=== PATIENT | female | born 1955 | race Caucasian/White ===

== ENCOUNTER 2022-09-20 22:36 | Emergency (ER) | payer OTHER, MEDICARE, BC ==
[2022-09-20] MEDS ORDERED: Ondansetron ODT 4 MG TAB ONE (23:26)
[2022-09-20] MEDS ORDERED: Acetaminophen 500 MG TAB ONE (23:26)
[2022-09-21] MEDS ORDERED: Bacitracin 1 PK ONE (00:12)
[2022-09-21] MEDS ORDERED: Methocarbamol 500 MG TAB PO SCH (00:30)
[2022-09-21] MEDS ORDERED: Bacitracin 1 PK TOP SCH (00:30)
== END 2022-09-21 00:30 | disposition home or self-care (01) ==
LOC: NAV ERS 22:36
DX: S02.2XXA Fracture of nasal bones, initial encounter for closed fracture (principal); S80.02XA Contusion of left knee, initial encounter; I10 Essential (primary) hypertension; W01.0XXA Fall on same level from slipping, tripping and stumbling without subsequent striking against object, initial encounter
CPT/HCPCS: 70450; 70486; 72125; Q0162